=== PATIENT | male | born 1995 | race African-American/Black ===

== ENCOUNTER 2017-07-10 17:26 | Emergency (ER) | payer OTHER ==
[2017-07-10 17:57] VITALS: BP 125/57; PULSE 58; RESP 20; TEMP 98.5
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
== END 2017-07-10 18:47 | disposition home or self-care (01) ==
LOC: EC 17:26
DX: S29.012A Strain of muscle and tendon of back wall of thorax, initial encounter (principal); V43.52XA Car driver injured in collision with other type car in traffic accident, initial encounter; Y92.488 Other paved roadways as the place of occurrence of the external cause
CPT/HCPCS: 99283